=== PATIENT | female | born 1985 | race Caucasian/White ===

== ENCOUNTER 2018-10-02 05:12 | Day surgery (SDC) | payer OTHER ==
[2018-09-23 12:27] VITALS: BMI 27.4
[2018-10-02] MEDS ORDERED: SODIUM CHLORIDE 0.9% P/F 10 ML VIAL IJ ONE (07:37)
[2018-10-02] MEDS ORDERED: DEXAMETHASONE SOD PHOSPHATE 4 MG/1 ML VIAL ONE (07:37)
[2018-10-02] MEDS ORDERED: ceFAZolin SODIUM 1 GM VIAL ONE (07:37)
[2018-10-02] MEDS ORDERED: LIDOCAINE HCL/PF 2% SDV 5ML VIAL ONE (07:37)
[2018-10-02] MEDS ORDERED: KETOROLAC TROMETHAMINE 30 MG/1 ML VIAL ONE (07:37)
[2018-10-02] MEDS ORDERED: ROCURONIUM BROMIDE 50 MG/5 ML VIAL ONE (07:40)
[2018-10-02] MEDS ORDERED: MIDAZOLAM HCL 2 MG/2 ML SINGLE DOSE VIAL ONE (07:40)
[2018-10-02] MEDS ORDERED: PROPOFOL 20 ML ONE ×2 (07:40→10:49)
[2018-10-02] MEDS ORDERED: SUCCINYLCHOLINE CHLORIDE 200 MG/10 ML VIAL ONE (07:41)
[2018-10-02] MEDS ORDERED: BUPIVACAINE HCL/PF 0.5% (5MG/ML) 10 ML VIAL ONE (08:13)
--- NOTE | 2018-10-02 09:44 | HP ---
History & Physical Update - History History: No Change - Physical Physical: No Change - Assessment Assessment: No Change - Plan Plan: No Change (For laparoscopic cholecystectomy. Consent obtained, Procedure explained, with risks, benefits and complications and alternatives.)
[2018-10-02] MEDS ORDERED: CLINDAMYCIN 600 MG PREMIX BAG IVPB ONE (09:55)
[2018-10-02] MEDS ORDERED: CLINDAMYCIN PHOSPHATE 600 MG/4 ML VIAL ONE (09:56)
[2018-10-02] MEDS ORDERED: ONDANSETRON 4 MG/2 ML VIAL IVPUSH PRN (10:14)
[2018-10-02] MEDS ORDERED: LACTATED RINGERS SOLUTION 1,000 ML IV SCH (10:15)
[2018-10-02] MEDS ORDERED: NEOSTIGMINE METHYLSULFATE 0.5 MG/ML - 10 ML MDV ONE (10:19)
[2018-10-02] MEDS ORDERED: GLYCOPYRROLATE 0.2 MG/1 ML VIAL ONE (10:19)
[2018-10-02] MEDS ORDERED: BUPIVACAINE HCL/PF (5 MG/ML) 30 ML VIAL IJ ONE (10:52)
--- NOTE | 2018-10-02 11:01 | SURG ---
Surgery Internal Specialist Note Internal Specialist: Alexandro Vernon MD Date of Service: 10/02/18 Diagnosis: cholelithiasis; chronic cholecystitis Procedure: lap radhika I was present for the entirety of the operative procedure. For further detail, please refer to operative report.
--- NOTE | 2018-10-02 11:08 | OP ---
Operative Note - Note: Operative Date: 10/02/18 Pre-Operative Diagnosis: Cholelithiasis, chronic cholecystitis. Operation: Laparoscopic cholecystectomy. Findings: Large stone in the gallbladder. Post-Operative Diagnosis: Same as Pre-op Surgeon: Wiliam Cervantes Hedis Nurse: Alexandro Vernon Anesthesia: General Specimens Removed: Gallbladder. Estimated Blood Loss (mls): 5 Operative Report Dictated: Yes
--- NOTE | 2018-10-02 12:03 | OP ---
DATE OF OPERATION: 10/02/2018 PREOPERATIVE DIAGNOSIS: Cholelithiasis with chronic cholecystitis. POSTOPERATIVE DIAGNOSIS: Cholelithiasis with chronic cholecystitis. OPERATIVE PROCEDURE: Laparoscopic cholecystectomy and lysis of omental adhesions. SURGEON: Anson Cervantes MD EXTENSION WORK DIRECTOR: Alexandro Vernon MD ANESTHESIA: General anesthesia. OPERATIVE DESCRIPTION: This 32-year-old woman presented with chronic right upper quadrant abdominal pain and intermittent nausea. She was diagnosed with cholelithiasis and chronic cholecystitis. Consent was obtained. Risks, benefits, and complications have been discussed with the patient. Patient was given general anesthesia, abdomen was painted and draped. An incision was made in the infraumbilical portion of the umbilicus, which was deepened through the skin and subcutaneous tissue and the linea alba. The peritoneum was incised, and the abdominal cavity was entered. Two stay sutures of 2-0 Vicryl were obtained to anchor the 10-mm trocar into the abdominal wall. The 10-mm laparoscopic trocar of the Osvaldo type was introduced into the abdominal cavity. The abdomen was inflated with carbon dioxide at 6 L per minute with a maximum intraabdominal pressure of 15 mmHg. A 5-mm laparoscopic camera was introduced into the abdominal cavity. Under direct vision, two 5-mm trocars were inserted in the right upper quadrant of the abdomen, one along the midclavicular line, another around the anterior axillary line. A third trocar was inserted in the midline in the subxiphoid area entering the abdominal cavity to the right of the falciform ligament. All the trocars were noted entering the abdominal cavity under direct vision with the camera. The gallbladder was then visualized and the fundus seen. The fundus of the gallbladder was grasped with the grasper through the lateral 5-mm port and retracted cephalad and laterally. There were omental adhesions around the gallbladder. With the EndoShears in the subxiphoid port, the omental adhesions were lysed all the way down to the infundibulum of the gallbladder and the cystic duct, as well. The infundibulum of the gallbladder was then grasped with another 5-mm grasper and retracted inferiorly and laterally, thus exposing the Calot triangle. With the EndoShears, the peritoneal reflection around the cystic duct was incised circumferentially with sharp and blunt dissection, as well as using electrocautery. Once the cystic duct was isolated circumferentially, it was divided with end- clips. The cystic artery was brought into view and it was likewise divided with end- clips. The peritoneal reflection on either side of the gallbladder was then incised, the gallbladder dissected out of the gallbladder bed all the way to the fundus of the gallbladder. The cholecystectomy was accomplished. An EndoCatch was introduced through the umbilical port, the gallbladder placed in the EndoCatch and retrieved out of the abdominal cavity with a large stone in the gallbladder. The gallbladder fossa was then thoroughly irrigated with normal saline. Hemostasis was achieved and was satisfactory at the completion of the procedure. The abdomen was then deflated, the instruments were withdrawn, and the linea alba in the midline was approximated with interrupted [id number] 2-0 Vicryl sutures. Skin was approximated with buried interrupted 4-0 Monocryl sutures. Sponge count and instrument count were correct. Estimated blood loss was within 5-10 mL. Patient tolerated the procedure well. The skin was approximated with Dermabond. Patient was extubated and sent to the recovery room in satisfactory and stable condition. Casie [id number] MTDD
[2018-10-02 14:28] VITALS: BP 100/55; PULSE 72; TEMP 97.3
== END 2018-10-02 14:25 | disposition home or self-care (01) ==
LOC: JASU-SURG 05:12
PROVIDERS: ATTEND Specialist
PROC: 0FT44ZZ Resection of Gallbladder, Percutaneous Endoscopic Approach (ICD-10-PCS; principal; 2018-10-02 09:30)
DX: K80.10 Calculus of gallbladder with chronic cholecystitis without obstruction (principal)
CPT/HCPCS: 84703; 88304-TC; 94760

== ENCOUNTER 2019-10-08 16:36 | Emergency (ER) | payer OTHER ==
[2019-10-08 16:44] VITALS: BP 124/63; PULSE 86; TEMP 98; BMI 27.2
[2019-10-08] MEDS ORDERED: KETOROLAC TROMETHAMINE 60 MG/2 ML VIAL IM ONE (17:16)
--- NOTE | 2019-10-08 17:18 | PDOC ---
History of Present Illness - General Chief Complaint: Back Pain Stated Complaint: LOWER BACK PAIN Time Seen by Provider: 10/08/19 16:46 History Source: Patient Exam Limitations: No Limitations - History of Present Illness Initial Comments: 10/08/19 17:14 CHIEF COMPLAINT: Lower back pain HISTORY OF PRESENT ILLNESS:33-year-old woman, 5 days of nonradiating pain, no neurosensory deficits, no bowel or bladder difficulty incontinence or urinary retention, no saddle anesthesia, no footdrop. No history of IVDU or hisotry of cancer. REVIEW OF SYSTEMS: GENERAL: Afebrile, denies any weakness RESPIRATORY: No cough, wheezing, or hemoptysis. CARDIAC: No chest pain or shortness of breath MUSCULOSKELETAL: Pain to generalized lower back. No point tenderness. SKIN : No erythema, no bruising, no deformity. GI/: Denies any abdominal pain, no urinary difficulty, incontinence or urinary retention. RECTAL: Denies any difficulty this A.M. NEUROLOGICAL: Denies any numbness or tingling. No neurosensory deficits. PHYSICAL EXAM: GENERAL: The patient is awake, alert, and fully oriented, in no acute distress. RESPIRATORY: Lungs clear bilaterally, no rhonchi wheezes or crackles CARDIAC: S1-S2 audible, no murmur rub or gallop MUSCULOSKELETAL: Pain to generalized lower back, nonradiating, no tingling or sensory deficit. Less than 2 second cap refill, +2 pedal pulses. No spinal point tenderness. Normal reflexive and no deficits to sensation or strength. Able to perform straight leg raises without difficulty. GI/: Abdomen soft, nontender, nondistended. No rebound tenderness. No masses palpable. RECTAL: Deferred patient with no neurological findings SKIN: Warm, Dry, normal turgor, no erythema, no edema no bruising. Past History - Past Medical History Allergies/Adverse Reactions: Allergies Allergy/AdvReac Type Severity Reaction Status Date / Time cefaclor [From [facility]] Allergy Intermediate Hives Verified 10/08/19 16:44 Home Medications: Ambulatory Orders Acetaminophen [Tylenol .Regular Strength -] 650 mg PO Q4H PRN #0 tablet Ibuprofen [Motrin -] 600 mg PO Q6H PRN #20 tablet 06/15/15 Ibuprofen [Motrin -] 400 mg PO TID #21 tablet 10/02/18 Oxycodone HCl/Acetaminophen [Percocet 5-325 mg Tablet] 1 tab PO Q6H #20 tablet MDD 3 10/02/18 Anemia: No Asthma: No Cancer: No Cardiac Disorders: No CVA: No COPD: No CHF: No Dementia: No Diabetes: No GI Disorders: No Disorders: No HTN: No Hypercholesterolemia: Yes (diet controlled) Liver Disease: No Seizures: No Thyroid Disease: No - Surgical History Abdominal Surgery: Yes (hernia suprapubic area, age 3) Appendectomy: No Cardiac Surgery: No Cholecystectomy: No Lung Surgery: No Neurologic Surgery: No Orthopedic Surgery: No - Psycho Social/Smoking Cessation Hx Smoking History: Never smoked Have you smoked in the past 12 months: No Hx Alcohol Use: No Drug/Substance Use Hx: No Substance Use Type: None Hx Substance Use Treatment: No *Physical Exam - Vital Signs Last Vital Signs Temp Pulse Resp BP Pulse Ox 98 F 86 18 124/63 99 10/08/19 16:42 10/08/19 16:42 10/08/19 16:42 10/08/19 16:42 10/08/19 16:42 Medical Decision Making - Medical Decision Making 10/08/19 17:17 A/P: 33-year-old woman with lower back pain Most likely musculoskeletal will collect urine to rule out or infection Toradol 60 mg IM now Reassess 10/08/19 17:40 Urine and urinalysis are negative. Patient reports improvement in the pain she is able to sit and stand without difficulty. Patient reports improvement is well enough to go home. I discussed the physical exam findings, ancillary test results and final diagnoses with the patient. I answered all of the patient's questions. The patient was satisfied with the care received and felt comfortable with the discharge plan and treatment plan. The patient will call their primary care physician within 24 hours to arrange follow-up and will return to the Emergency Department with any new, persistent or worsening symptoms. Discharge - Discharge Information Problems reviewed: Yes Clinical Impression/Diagnosis: Back pain Qualifiers: Back pain location: low back pain Chronicity: acute Back pain laterality: midline Sciatica presence: with sciatica Sciatica laterality: bilateral sciatica Qualified Code(s): M54.42 - Lumbago with sciatica, left side; M54.41 - Lumbago with sciatica, right side Condition: Stable Disposition: HOME - Admission No - Follow up/Referral Referrals: Genet Torres MD [Primary Care Provider] - - Patient Discharge Instructions Additional Instructions: Rest. Take Tylenol or Motrin as needed for pain. Follow manufacturers instructions for appropriate dosage. Warm moist heat applied to your back may help alleviate pain. Return to emergency department for discoloration of the foot, numbness or tingling to the foot, worsening pain, or any other concerns. Thank you very much for choosing us to provide your emergent healthcare needs. - Post Discharge Activity Work/Back to School Note: Back to Work
[2019-10-08] MEDS ORDERED: KETOROLAC TROMETHAMINE 60 MG/2 ML VIAL ONE (17:30)
[2019-10-08 17:38] LABS: URINE APPEARANCE CLEAR; URINE BILIRUBIN NEGATIVE (NEGATIVE); URINE COLOR YELLOW; URINE GLUCOSE (UA) NEGATIVE (NEGATIVE); URINE KETONE NEGATIVE (NEGATIVE); URINE LEUK ESTERASE NEGATIVE (NEGATIVE); URINE NITRITE NEGATIVE (NEGATIVE); URINE PROTEIN NEGATIVE (NEGATIVE); URINE UROBILINOGEN 0.2 mg/dL (0.2-1.0)
== END 2019-10-08 17:54 | disposition home or self-care (01) ==
LOC: JERFT 16:36
PROC: 3E0233Z Introduction of Anti-inflammatory into Muscle, Percutaneous Approach (ICD-10-PCS; principal; 2019-10-08)
DX: M54.42 Lumbago with sciatica, left side (principal); M54.41 Lumbago with sciatica, right side; Z88.1 Allergy status to other antibiotic agents
CPT/HCPCS: 81003; 84703; 87086; 99283-25

== ENCOUNTER 2020-10-20 08:10 | Emergency (ER) | payer OTHER ==
[2020-10-20 08:22] VITALS: BP 118/82; PULSE 84; TEMP 97.8; BMI 29.2
[2020-10-20] MEDS ORDERED: IBUPROFEN 600 MG TABLET (FP) PO ONE ×2 (08:33→08:46)
[2020-10-20] MEDS ORDERED: CYCLOBENZAPRINE HCL 10 MG TABLET (FP) PO ONE (08:33)
[2020-10-20] MEDS ORDERED: CYCLOBENZAPRINE HCL 10 MG TABLET (FP) ONE (08:48)
== END 2020-10-20 10:00 | disposition home or self-care (01) ==
LOC: JER 08:10
DX: S92.355A Nondisplaced fracture of fifth metatarsal bone, left foot, initial encounter for closed fracture (principal)
CPT/HCPCS: 72220-TC-FY; 73610-TC-LT-FY; 73630-TC-LT; 99284-25